=== PATIENT | female | born 1995 | race Caucasian/White ===

== ENCOUNTER 2019-01-09 22:50 | Emergency (ER) | payer OTHER ==
[~2019-01-09] VITALS: Ht 160 cm; Wt 74.4 kg
[2019-01-09 22:53] VITALS: Ht 160 cm; Wt 74.4 kg
[2019-01-10 00:56] VITALS: BP 129/80
== END 2019-01-10 00:56 | disposition home or self-care (01) ==
LOC: ED 22:50
DX: F41.9 Anxiety disorder, unspecified (principal)